=== PATIENT | male | born 1965 | race Caucasian/White ===

== ENCOUNTER 2019-02-27 15:51 | Emergency (ER) | payer BC ==
[2019-02-27 16:06] VITALS: RESP 18; TEMP 98.4
[2019-02-27] MEDS ORDERED: SODIUM CHLORIDE 0.9% 1000ML 1,000 ML IV ONE (16:12)
[2019-02-27 16:28] LABS: BASOPHILS % (AUTO) 1 % (0-3); EOSINOPHILS % (AUTO) 3 % (0-9); HEMATOCRIT 48 % (39-53); HEMOGLOBIN 15.5 gm/dl (13.5-17.7); MEAN CORPUSCULAR HEMOGLOBIN 28.6 pg (27.0-32.0); MEAN CORPUSCULAR HGB CONC 32.2 gm/dl (32.0-36.0); MEAN CORPUSCULAR VOLUME 89 fL (80-100); MONOCYTES % (AUTO) 6.7 % (0-12); NEUTROPHILS % (AUTO) 69.4 % (37-80)
[2019-02-27 16:45] LABS: ALBUMIN 3.3 gm/dl (3.4-5.0); ALKALINE PHOSPHATASE 69 IU/L (46-116); ALT 51 IU/L (14-63); AST 30 IU/L (15-37); BILIRUBIN,DIRECT 0.1 mg/dl (0.0-0.2); BILIRUBIN,TOTAL 0.3 mg/dl (0.2-1.0); BLOOD UREA NITROGEN 12 mg/dl (7-18); CALCIUM 8.3 mg/dl (8.5-10.1); CARBON DIOXIDE 30.5 mEq/L (21-32); CHLORIDE 102 mMol/L (98-107); GLUCOSE 280 mg/dl (74-106); TOTAL PROTEIN 6.7 gm/dl (6.4-8.2); TROP I < 0.017 ng/ml (0.000-0.056)
[2019-02-27 16:51] LABS: MAGNESIUM 1.8 mg/dl (1.8-2.4)
[2019-02-27 16:55] VITALS: O2SAT 99
[2019-02-27 17:01] LABS: APPEARANCE,URINE Cloudy; BILIRUBIN,URINE 1+ (NEGATIVE); COLOR,URINE Yellow; GLUCOSE, URINE (UA) TRACE (NEGATIVE); KETONES,URINE NEGATIVE (NEGATIVE); LEUKOCYTE ESTERASE ,URINE NEGATIVE (NEGATIVE); NITRATE,URINE NEGATIVE (NEGATIVE); OCCULT BLOOD,URINE NEGATIVE (NEG-TRACE); PH,URINE 8.5; UROBILINOGEN,URINE >=8.0 (0.2-1.0 EU)
[2019-02-27 17:08] VITALS: PULSE 72
[2019-02-27 17:14] LABS: BACTERIA 2+ (< 1+); CRYSTALS 2+ (0-3 AVE/HPF); EPITHELIAL CELLS NEGATIVE (SQUAMOUS); ICTOTEST,URINE NEGATIVE (NEGATIVE); RBC,URINE 0-1 (0-3AV/HPF); WBC,URINE 0-1 (0-5AV/HPF)
[2019-02-27 17:49] VITALS: BP 125/89
== END 2019-02-27 18:00 | disposition home or self-care (01) ==
LOC: EDBD 15:51 → ED 15:51
DX: E86.0 Dehydration (principal); R73.9 Hyperglycemia, unspecified; R80.9 Proteinuria, unspecified; E11.9 Type 2 diabetes mellitus without complications
CPT/HCPCS: 36415; 80048; 80076; 81001; 82962; 83735; 84100; 84484; 85025; 93005; 96365; 99283; 99284